=== PATIENT | male | born 1960 | race Two or more races ===

== ENCOUNTER 2018-01-15 08:57 | Outpatient (CLI) | payer OTHER | END 2018-01-15 09:10 | disposition home or self-care (01) | LOC: MRI 08:57 | DX: M50.20 Other cervical disc displacement, unspecified cervical region (principal); M50.30 Other cervical disc degeneration, unspecified cervical region | CPT/HCPCS: 72141 ==

== ENCOUNTER 2018-05-22 12:54 | Outpatient (CLI) | payer OTHER | END 2018-05-22 13:00 | disposition home or self-care (01) | LOC: RAD 12:54 | DX: S59.812A Other specified injuries left forearm, initial encounter (principal) ==